=== PATIENT | female | born 1955 | race Caucasian/White ===

== ENCOUNTER → 2016-11-27 | Outpatient (CLI) | payer OTHER ==
[~2016-11-27] MED LIST: ALPR0.5T6 PO; CHOL500050 PO; DICY10CA3 PO; DIPH25CA61 PO; LEVO137T3 PO; MAGN420T PO; MENTHOL/M-SALICYLATE TP; METH500T7 PO; METO25TA35 PO; MILK OF MAG PO; NALOXONE NAS; OMEP40CA6 PO; OXYC20TA2 PO; OXYC5CAP4 PO; PREG150C PO; SERT25TA3 PO; TERI2.4P SC; TRAZ100T15 PO
[2016-11-27 16:15] LABS: HEMOGLOBIN 14.5 g/dL (11.7-16.4)
[2016-11-27 16:26] LABS: BLOOD UREA NITROGEN 9 mg/dL (7-18)
== END | disposition home or self-care (01) ==
LOC: STAR 14:29
PROVIDERS: ATTEND Neurological Surgery
DX: Z01.818 Encounter for other preprocedural examination (principal); M48.02 Spinal stenosis, cervical region; R79.1 Abnormal coagulation profile
CPT/HCPCS: 36415; 80048; 85025; 85610; 85730

== ENCOUNTER 2016-12-05 08:12 | Inpatient (IN) | payer MEDICARE, OTHER ==
[2016-12-03 10:14] LABS: PATH.CAST-FLAG NOT PRESENT; SPERM-FLAG NOT PRESENT; SRC-FLAG NOT PRESENT; XTAL-FLAG NOT PRESENT; YLC-FLAG NOT PRESENT
[~2016-12-05] VITALS: Ht 172.7 cm; Wt 62.1 kg
[~2016-12-05 08:12] MED LIST changes: +BACITRACIN 50,000 UNIT ONE; +BUPIVACAINE/PF 0.5% ONE; +BUPIVACAINE/PF-EPI 0.25% 1:200K ONE; +THROMBIN 5,000 UNIT VIAL TP ONE; +VANCOMYCIN 1,000 MG ONE
[2016-12-05] MEDS ORDERED: LACTATED RINGERS 1,000 ML IV SCH (08:35)
[2016-12-05] MEDS ORDERED: MIDAZOLAM 1 MG/ML, 2ML ONE (08:37)
[2016-12-05] MEDS ORDERED: FENTANYL PF 250 MCG/5ML ONE (08:37)
[2016-12-05 09:02] VITALS: BP 134/86
[2016-12-05] MEDS ORDERED: CEFAZOLIN 1,000 MG ONE (09:29)
[2016-12-05] MEDS ORDERED: ONDANSETRON 2MG/ML, 2ML ONE (09:29)
[2016-12-05] MEDS ORDERED: SUCCINYLCHOLINE 20 MG/ML, 10ML ONE (09:29)
[2016-12-05] MEDS ORDERED: PROPOFOL 10 MG/ML, 50ML ONE (09:29)
[2016-12-05] MEDS ORDERED: ROCURONIUM 10 MG/ML ONE (09:29)
[2016-12-05] MEDS ORDERED: DEXAMETHASONE 4 MG/ML, 1ML ONE (09:29)
[2016-12-05] MEDS ORDERED: KETAMINE 10 MG/ML, 20ML ONE (10:37)
[2016-12-05] MEDS ORDERED: hydrALAzine 20 MG/ML, 1ML IV PRN (11:30)
[2016-12-05] MEDS ORDERED: METOCLOPRAMIDE 5 MG/ML, 2ML IV PRN (11:30)
[2016-12-05] MEDS ORDERED: FENTANYL PF 100 MCG/2ML IV PRN (11:30)
[2016-12-05] MEDS ORDERED: OXYcodone 5 MG/5 ML ORAL.SOL UDC PO PRN (11:30)
[2016-12-05] MEDS ORDERED: ACETAMINOPHEN 325 MG TABLET PO PRN (11:30)
[2016-12-05] MEDS ORDERED: ONDANSETRON 2MG/ML, 2ML IVPush PRN (11:30)
[2016-12-05] MEDS ORDERED: LABETALOL 5MG/ML, 20ML IV PRN ×2 (11:30→15:00)
[2016-12-05] MEDS ORDERED: OXYcodone 5 MG/5 ML ORAL.SOL UDC ONE (11:55)
[2016-12-05] MEDS ORDERED: HYDROmorphone 2 MG/ML, 1ML ONE (11:55)
[2016-12-05] MEDS ORDERED: ACETAMINOPHEN 650 MG/20.3 ML UDC ONE (11:55)
[2016-12-05] MEDS ORDERED: ACETAMINOPHEN 325 MG TABLET ONE (11:56)
[2016-12-05] MEDS: HYDROmorphone 1 MG/ML, 1ML IV PRN ×2 (12:00→12:20)
[2016-12-05] MEDS ORDERED: TRAZODONE 100MG TABLET PO PRN (14:30)
[2016-12-05] MEDS ORDERED: MAGNESIUM HYDROXIDE 8%, 30ML UDC PO PRN (15:00)
[2016-12-05] MEDS ORDERED: DIPHENHYDRAMINE 50 MG CAPSULE PO PRN (15:00)
[2016-12-05] MEDS ORDERED: OXYcodone IR 5MG TABLET PO PRN (15:00)
[2016-12-05] MEDS ORDERED: PROMETHAZINE 25 MG/ML, 1ML IM PRN (15:00)
[2016-12-05] MEDS ORDERED: ONDANSETRON 2MG/ML, 2ML IV PRN (15:00)
[2016-12-05] MEDS ORDERED: BISACODYL 10 MG SUPP PR PRN (15:00)
[2016-12-05] MEDS ORDERED: METHOCARBAMOL 750 MG TABLET PO PRN ×2 (15:00→16:23)
[2016-12-05] MEDS ORDERED: morphine SULFATE 10 MG/ML, 1ML IV PRN (15:00)
[2016-12-05] MEDS: DICYCLOMINE 10 MG CAPSULE PO SCH ×2 (15:51→20:36)
[2016-12-05] MEDS: D5%-0.9% NACL+KCL 20MEQ 1,000 ML IV SCH (15:58)
[2016-12-05] MEDS ORDERED: OXYcodone IR 5MG TABLET PO SCH (16:00)
[2016-12-05] MEDS ORDERED: DEXAMETHASONE 1.5 MG TABLET PO SCH (17:00)
[2016-12-05] MEDS ORDERED: DEXAMETHASONE 1 MG TABLET PO SCH (17:00)
[2016-12-05] MEDS: CEFAZOLIN PMX 1GM/50ML 50 ML IVPB SCH (18:17)
[2016-12-05] MEDS: METOPROLOL TARTRATE 25 MG TABLET PO SCH (18:19)
[2016-12-05 19:24] VITALS: BP 111/74
[2016-12-05] MEDS: OxyconTIN ER 20 MG TAB.ER PO SCH (20:36)
[2016-12-05] MEDS: PREGABALIN 150 MG CAPSULE PO SCH (20:37)
[2016-12-05] MEDS: OMEPRAZOLE 20 MG CAPSULE.DR PO SCH (20:37)
[2016-12-05] MEDS: FAMOTIDINE 20 MG TABLET PO SCH (20:37)
[2016-12-05] MEDS: DEXAMETHASONE 4 MG TABLET PO SCH (23:42)
[2016-12-05] MEDS: OXYcodone IR 5MG TABLET PO PRN (23:42)
[2016-12-06] MEDS: CEFAZOLIN PMX 1GM/50ML 50 ML IVPB SCH ×2 (01:56→09:11)
[2016-12-06 02:20] VITALS: BP 135/87
[2016-12-06] MEDS: D5%-0.9% NACL+KCL 20MEQ 1,000 ML IV SCH (03:03)
[2016-12-06] MEDS: OxyconTIN ER 20 MG TAB.ER PO SCH (04:04)
[2016-12-06] MEDS ORDERED: LEVOTHYROXINE 137 MCG TABLET PO SCH (06:00)
[2016-12-06] MEDS: METOPROLOL TARTRATE 25 MG TABLET PO SCH (06:13)
[2016-12-06] MEDS: DEXAMETHASONE 4 MG TABLET PO SCH ×2 (06:13→11:56)
[2016-12-06] MEDS: DICYCLOMINE 10 MG CAPSULE PO SCH ×2 (06:13→11:00)
[2016-12-06 06:37] VITALS: BP 133/92
[2016-12-06 06:56] VITALS: BP 133/92
[2016-12-06] MEDS ORDERED: SENNA/DOCUSATE TABLET PO SCH (09:00)
[2016-12-06] MEDS ORDERED: [UNRECOGNIZED DRUG - OTHER] SC SCH (09:00)
[2016-12-06] MEDS ORDERED: TERIPARATIDE SC SCH (09:00)
[2016-12-06] MEDS ORDERED: SULFAMETH./TRIMETHOPRIM DS 800MG/160MG TABLET PO SCH (09:00)
[2016-12-06] MEDS ORDERED: SERTRALINE 50MG TABLET PO SCH (09:00)
[2016-12-06] MEDS: FAMOTIDINE 20 MG TABLET PO SCH (09:09)
[2016-12-06] MEDS: OMEPRAZOLE 20 MG CAPSULE.DR PO SCH (09:09)
[2016-12-06] MEDS: PREGABALIN 150 MG CAPSULE PO SCH (09:09)
[2016-12-06] MEDS: OXYcodone IR 5MG TABLET PO PRN (09:09)
[2016-12-06 10:45] VITALS: BP 138/80
[2016-12-06] MEDS ORDERED: OXYC5CAP4 PO (11:05)
[2016-12-06] MEDS ORDERED: METH750T87 PO (11:06)
[2016-12-06] MEDS ORDERED: SULF1TAB24 PO (11:06)
[2016-12-06] MEDS ORDERED: METH4TAB2 PO (11:07)
== END 2016-12-06 11:55 | disposition home or self-care (01) | DRG 472 ==
LOC: ORIP 08:12 → 3NE 12:40 → 4NOR 13:25 → DCLOUNGE 12-06 11:30
PROVIDERS: ADMIT Neurological Surgery; ATTEND Neurological Surgery
PROC: 0RG10A0 Fusion of Cervical Vertebral Joint with Interbody Fusion Device, Anterior Approach, Anterior Column, Open Approach (ICD-10-PCS; 2016-12-05)
PROC: 0RP104Z Removal of Internal Fixation Device from Cervical Vertebral Joint, Open Approach (ICD-10-PCS; 2016-12-05)
PROC: 00NW0ZZ Release Cervical Spinal Cord, Open Approach (ICD-10-PCS; 2016-12-05)
PROC: 4A11X4G Monitoring of Peripheral Nervous Electrical Activity, Intraoperative, External Approach (ICD-10-PCS; 2016-12-05)
PROC: 0RB30ZZ Excision of Cervical Vertebral Disc, Open Approach (ICD-10-PCS; principal; 2016-12-05 10:00)
DX: M48.02 Spinal stenosis, cervical region (principal); G95.9 Disease of spinal cord, unspecified; F17.200 Nicotine dependence, unspecified, uncomplicated; G89.4 Chronic pain syndrome; M19.90 Unspecified osteoarthritis, unspecified site; Z88.0 Allergy status to penicillin; Z90.710 Acquired absence of both cervix and uterus; Z90.49 Acquired absence of other specified parts of digestive tract; Z82.61 Family history of arthritis; Z83.3 Family history of diabetes mellitus; Z82.49 Family history of ischemic heart disease and other diseases of the circulatory system; Z82.3 Family history of stroke
CPT/HCPCS: 72040; 81001; C1713; J0690; J1100; J1170; J2250; J2405; J2704; J3010; J3370; J3490; C1762; C1778; J0330; J3480; J7120